=== PATIENT | male | born 1930 | race Caucasian/White ===

== ENCOUNTER → 2016-09-24 | Outpatient (CLI) | payer MEDICARE, BC ==
[~2016-09-24] MED LIST: BARIUM SULFATE 135 ML (E-Z HD) PO ONE
--- NOTE | 2016-09-29 13:42 | RADRPT ---
PROCEDURE: Video-fluoroscopy swallowing study. CLINICAL INDICATION: Dysphagia. TECHNIQUE: Fluoroscopic guided video swallowing study was done in conjunction with the speech ther apist. The study was confined to the oral, pharyngeal, and cervical phases of the swallowing mechani sm. 2.2 minutes of fluoroscopy time was used. COMPARISON: No prior study is available for comparison. FINDINGS: There is aspiration during swallowing without cough reflex. IMPRESSION: 1. Silent aspiration. 2. Please refer to the speech therapist's recommendations for future feedings. RPTAT: QQ .Manuel Barrios MD, MD Date Time Electronically viewed and signed by .Manuel Barrios MD, MD on 09/29/2016 13:41 .R/
== END | disposition home or self-care (01) ==
LOC: RAD 13:15
PROVIDERS: ATTEND Family Medicine
DX: R13.10 Dysphagia, unspecified (principal); R49.21 Hypernasality; G20 Parkinson's disease
CPT/HCPCS: 74230; 92611; G8996; G8997; G8998